=== PATIENT | male | born 2000 | race Caucasian/White ===

== ENCOUNTER 2025-06-13 14:12 | Emergency (ER) | payer OTHER ==
[~2025-06-13] VITALS: Ht 172.7 cm; Wt 90.8 kg
[2025-06-13 16:01] VITALS: BP 147/80; TEMP 97.2; O2SAT 98
== END 2025-06-13 16:03 | disposition home or self-care (01) ==
LOC: M ED 14:12
DX: S46.911A Strain of unspecified muscle, fascia and tendon at shoulder and upper arm level, right arm, initial encounter (principal); X50.0XXA Overexertion from strenuous movement or load, initial encounter; Y92.9 Unspecified place or not applicable; Y93.9 Activity, unspecified; Y99.1 Military activity; F17.200 Nicotine dependence, unspecified, uncomplicated